=== PATIENT | female | born 1960 | race Caucasian/White ===

== ENCOUNTER → 2017-09-27 | Outpatient (CLI) | payer MEDICARE, MEDICAID ==
[~2017-09-27] MED LIST: ACYC-114 PO; ACYC5CRE2 TP; ALBU8.5H5 INH; ALBU8.5H8 INH; ALPR0.5T10 PO; AMIT25TA PO; CYCL5TAB PO; DEXT1DRO6 EACHEYE; DIAZ5TAB4 PO; DIPH25CA61 PO; ESCI20TA PO; ESOM40CA PO; ESTR1PAT79 TD; FEXO1TAB25 PO; FLUO15CR2 TP; GABA300C10 PO; HYDR-3307 PO; HYDR25TA11 PO; IMIP10TA2 PO; KETO5DRO70 OP; LACT1CAP43 PO; NAPR220C2 PO; OMEP40CA6 PO; ONDA4TAB10 PO; OXYC-306 PO; PRAV40TA2 PO; RANI300C PO; SERT100T5 PO; SIME180C15 PO; SUMA50TA3 PO; TOPI50TA8 PO; VALA1000 PO; alkalol NS
== END | disposition home or self-care (01) ==
LOC: CFH 09:52
PROVIDERS: ATTEND Otolaryngology Facial Plastic Surgery
DX: G43.909 Migraine, unspecified, not intractable, without status migrainosus (principal); M79.1 Myalgia
CPT/HCPCS: 70543

== ENCOUNTER → 2017-11-14 | Outpatient (CLI) | payer MEDICARE, MEDICAID | END | disposition home or self-care (01) | LOC: CFH 13:57 | PROVIDERS: ATTEND Nurse Practitioner | DX: M47.24 Other spondylosis with radiculopathy, thoracic region (principal); M47.22 Other spondylosis with radiculopathy, cervical region; M25.78 Osteophyte, vertebrae | CPT/HCPCS: 72050; 72072; 72141; 72146 ==

== ENCOUNTER → 2018-03-07 | Outpatient (CLI) | payer MEDICARE, MEDICAID ==
[~2018-03-07] MED LIST changes: +ATOR40TA78 PO; +CIDE500T PO; +DOXY100C2 PO; +MILK150C2 PO; +MOME13HF INH; +MULT1TAB60 PO; +Oxygen INH; +PREDNISONE EYE EACH EAR; +PREG100C PO; +TRAM50TA2 PO; +UBID100C41 PO; +[UNRECOGNIZED DRUG - OTHER] PO; +[UNRECOGNIZED DRUG - REMARK] TP
== END | disposition home or self-care (01) ==
LOC: STAR 10:05
PROVIDERS: ATTEND Thoracic Surgery (Cardiothoracic Vascular Surgery)
DX: Z02.9 Encounter for administrative examinations, unspecified (principal)

== ENCOUNTER 2018-03-14 07:24 | Day surgery (SDC) | payer MEDICARE, MEDICAID ==
[~2018-03-14] VITALS: Ht 149.9 cm; Wt 79.0 kg
[~2018-03-14 07:24] MED LIST changes: +BUPIVACAINE/PF 0.5% ONE; +EPINEPHRINE 1 MG/ML, 1ML ONE
[2018-03-14 07:41] VITALS: BP 110/74
[2018-03-14] MEDS ORDERED: LACTATED RINGERS 1,000 ML IV SCH ×2 (07:44→11:00)
[2018-03-14] MEDS ORDERED: LIDOCAINE-MPF 1%, 5ML ONE (07:49)
[2018-03-14] MEDS ORDERED: LIDOCAINE-MPF 1%, 2ML INFIL ONE (08:00)
[2018-03-14] MEDS ORDERED: MIDAZOLAM 1 MG/ML, 2ML ONE (08:08)
[2018-03-14] MEDS ORDERED: FENTANYL PF 250 MCG/5ML ONE ×2 (08:09→09:25)
[2018-03-14] MEDS ORDERED: PROPOFOL 10 MG/ML, 20ML ONE (08:09)
[2018-03-14] MEDS ORDERED: ROCURONIUM 10MG/ML,5ML ONE (08:10)
[2018-03-14] MEDS ORDERED: CEFOTETAN PMX 2GM/50ML 50 ML ONE (08:10)
[2018-03-14] MEDS ORDERED: ONDANSETRON 2MG/ML, 2ML ONE ×2 (08:11)
[2018-03-14] MEDS ORDERED: DEXAMETHASONE 4 MG/ML, 1ML ONE ×2 (08:11)
[2018-03-14] MEDS ORDERED: DEXMEDETOMIDINE 200 MCG/2 ML ONE (08:33)
[2018-03-14] MEDS ORDERED: GLYCOPYRROLATE 0.2MG/1ML, 5ML ONE (08:48)
[2018-03-14] MEDS ORDERED: NEOSTIGMINE 1 MG/ML, 10ML ONE (08:48)
[2018-03-14] MEDS ORDERED: OXYcodone 5 MG/5 ML ORAL.SOL UDC PO PRN (09:30)
[2018-03-14] MEDS ORDERED: LORazepam 2 MG/ML, 1ML IVPush PRN (09:30)
[2018-03-14] MEDS ORDERED: ACETAMINOPHEN 325 MG TABLET PO PRN (09:30)
[2018-03-14] MEDS ORDERED: LABETALOL 5MG/ML, 20ML IV PRN (09:30)
[2018-03-14] MEDS ORDERED: hydrALAzine 20 MG/ML, 1ML IV PRN (09:30)
[2018-03-14] MEDS ORDERED: MEPERIDINE/PF 25MG/0.5ML IVPush PRN (09:30)
[2018-03-14] MEDS ORDERED: HALOPERIDOL 5 MG/ML IV PRN (09:30)
[2018-03-14] MEDS ORDERED: PROMETHAZINE 25 MG/ML, 1ML IV PRN (09:30)
[2018-03-14] MEDS ORDERED: KETOROLAC 30 MG/1 ML IVPush PRN (10:00)
[2018-03-14] MEDS ORDERED: HYDROmorphone 2 MG/ML, 1ML IV PRN (10:00)
[2018-03-14] MEDS ORDERED: ONDANSETRON 2MG/ML, 2ML IVPush PRN (10:00)
[2018-03-14] MEDS ORDERED: ACETAMINOPHEN 650 MG/20.3 ML UDC ONE (10:18)
[2018-03-14] MEDS ORDERED: KETOROLAC 30 MG/1 ML ONE (10:18)
[2018-03-14] MEDS ORDERED: FENTANYL PF 100 MCG/2ML ONE (10:18)
[2018-03-14] MEDS ORDERED: OXYcodone 5 MG/5 ML ORAL.SOL UDC ONE ×2 (10:18→11:29)
[2018-03-14] MEDS: FENTANYL PF 100 MCG/2ML IV PRN ×3 (10:21→10:39)
[2018-03-14] MEDS: OXYcodone 5 MG/5 ML ORAL.SOL UDC PO PRN ×3 (10:32→14:30)
[2018-03-14] MEDS ORDERED: HYDROmorphone 2 MG/ML, 1ML ONE (10:49)
[2018-03-14] MEDS: HYDROmorphone 1 MG/ML, 1ML IV PRN ×4 (10:52→11:25)
[2018-03-14] MEDS ORDERED: MEPERIDINE/PF 25MG/0.5ML ONE (11:45)
[2018-03-14] MEDS ORDERED: DIPHENHYDRAMINE 50 MG/ML, 1ML ONE (14:37)
[2018-03-14] MEDS ORDERED: DIPHENHYDRAMINE 50 MG/ML, 1ML IVPush PRN (15:00)
[2018-03-14] MEDS ORDERED: DIPHENHYDRAMINE 50 MG/ML, 1ML IVPush ONE (15:00)
== END 2018-03-14 16:45 | disposition home or self-care (01) ==
LOC: OUT 07:24
PROVIDERS: ATTEND Thoracic Surgery (Cardiothoracic Vascular Surgery)
DX: K44.9 Diaphragmatic hernia without obstruction or gangrene (principal); K21.9 Gastro-esophageal reflux disease without esophagitis; J45.909 Unspecified asthma, uncomplicated; G47.33 Obstructive sleep apnea (adult) (pediatric); Z79.899 Other long term (current) drug therapy; Z87.39 Personal history of other diseases of the musculoskeletal system and connective tissue; Z98.890 Other specified postprocedural states; Z88.6 Allergy status to analgesic agent; Z88.1 Allergy status to other antibiotic agents; Z88.5 Allergy status to narcotic agent; Z88.8 Allergy status to other drugs, medicaments and biological substances
CPT/HCPCS: 43280; J0171; J1100; J1170; J1200; J1885; J2175; J2250; J2405; J2704; J2710; J3010; J3490; J7120; S0074

== ENCOUNTER → 2018-04-18 | Outpatient (CLI) | payer MEDICARE, MEDICAID ==
[~2018-04-18] MED LIST changes: -BUPIVACAINE/PF 0.5% ONE; -EPINEPHRINE 1 MG/ML, 1ML ONE
== END | disposition home or self-care (01) ==
LOC: RAD 09:02
PROVIDERS: ATTEND Thoracic Surgery (Cardiothoracic Vascular Surgery)
DX: R13.10 Dysphagia, unspecified (principal)
CPT/HCPCS: 74241

== ENCOUNTER → 2018-07-18 | Outpatient (CLI) | payer MEDICARE, MEDICAID ==
[~2018-07-18] MED LIST changes: +GADOBUTROL 7.5 MMOL/7.5 ML PFS ONE
== END | disposition home or self-care (01) ==
LOC: RAD 16:26
PROVIDERS: ATTEND Family Medicine
DX: G43.909 Migraine, unspecified, not intractable, without status migrainosus (principal); H57.9 Unspecified disorder of eye and adnexa
CPT/HCPCS: 70543; A9585

== ENCOUNTER → 2018-09-03 | Outpatient (CLI) | payer MEDICARE, MEDICAID ==
[~2018-09-03] MED LIST changes: -GADOBUTROL 7.5 MMOL/7.5 ML PFS ONE; +SERT100T32 PO; -SERT100T5 PO
== END | disposition home or self-care (01) ==
LOC: CFH 10:17
PROVIDERS: ATTEND Physician Assistant
DX: R13.10 Dysphagia, unspecified (principal); R10.9 Unspecified abdominal pain; M43.26 Fusion of spine, lumbar region; Z90.49 Acquired absence of other specified parts of digestive tract
CPT/HCPCS: 74241